=== PATIENT | female | born 1945 | race Caucasian/White ===

== ENCOUNTER 2016-09-05 19:38 | Emergency (ER) | payer OTHER ==
--- NOTE | ~2016-09-05 | CR63 ---
[facility] A Service of [facility] RADIOLOGY TEXT RESULTS PATIENT: MIYA GIBSON V LOCATION: SED : 49 UNIT #: [id number] AGE: [address]: Lanre Valles MD SEX: F ORDER DR: [id number] [place] [id number] E MR#: [id number] Acc #: [id number] NAME: MIYA GIBSON V. : 1945 SEX: F STUDY DATE/TIME: 09/05/2016 20:17 UNIT: SED ROOM: STUDY DESCRIPTION: CR Chest 2 View Attending Physician: Lanre Valles M.D. Ordering Physician: Lanre Valles M.D. Primary Care Physician: Saeid Gilliam M.D. MEDICAL IMAGING REPORT This report is preliminary unless electronic signature is present. EXAM Two-view chest; 09/05/2016. HISTORY 71-year-old female with hemoptysis and dizziness beginning today. Cough. COMPARISON Chest, 04/12/2011. FINDINGS Two views of the chest demonstrates focal opacity in the left mid lung field. Mass versus infiltrate should be considered. Right lung clear. No pleural effusion or pneumothorax. Heart size and mediastinum within normal limits. Pulmonary vasculature unremarkable. IMPRESSION Focal opacity in the left midlung field. This may represent a mass versus infiltrate and can be further characterized with nonemergent chest CT when the patient is clinically able. Dictated by... Kevin Dotson M.D. THIS IS AN ELECTRONICALLY VERIFIED REPORT Kevin Dotson M.D. at 09/06/2016 6:14 PM MIK/horacio TD: 09/05/2016 23:24 JOB #: [id number] MEDICAL IMAGING REPORT [facility] A Service [facility] RADIOLOGY TEXT RESULTS PATIENT: MIYA GIBSON V LOCATION: SED : 47 UNIT #: [id number] AGE: [address]: Lanre Valles MD SEX: F ORDER DR: Page 1 of 1
[~2016-09-05 19:38] MED LIST: ASPIRIN; ASPIRIN81 M1 PO; CALCIUM 500 + D1 TAB; DARVOCET-N 1001 TAB; IMDUR; IMDUR-ER60 MG PO; KLONOPIN; KLONOPIN1 MG PO; LEVAQUIN PO; LEVOTHYROXINE50 MCG PO; LORTAB 10-5001 EACH PO; MIRAPEX PO; MIRAPEX1 MG PO; MOBIC PO; NEXIUM; NEXIUM PO; NORCO 5/325 TAB1 TAB PO; PLAVIX; PLAVIX PO; PREDNISONE PO; PREDNISONE50 MG PO; REQUIP1 MG; SKELAXIN PO; TOPAMAX25 MG PO; ZOCOR; ZOLOFT; ZOLOFT100 MG PO
[2016-09-05] MEDS ORDERED: BACLOFEN10 MG (19:50)
[2016-09-05] MEDS ORDERED: ALBUTEROL17 GM (19:50)
[2016-09-05] MEDS ORDERED: CLOPIDOGREL75 MG (19:51)
[2016-09-05] MEDS ORDERED: KLONOPIN0.5 M3 (19:51)
[2016-09-05] MEDS ORDERED: TEMOVATE 0.05%15 GM (19:51)
[2016-09-05] MEDS ORDERED: SYMBICORT80 (19:51)
[2016-09-05] MEDS ORDERED: LORTAB 5-325 M1 EACH (19:52)
[2016-09-05] MEDS ORDERED: KCL (19:52)
[2016-09-05] MEDS ORDERED: VOLTAREN100 GM (19:52)
[2016-09-05] MEDS ORDERED: IMDUR-ER60 M2 (19:52)
[2016-09-05] MEDS ORDERED: SYNTHROID0.05 MG (19:53)
[2016-09-05] MEDS ORDERED: PROTONIX (19:53)
[2016-09-05] MEDS ORDERED: DESYREL100 MG (19:54)
[2016-09-05] MEDS ORDERED: MIRAPEX ER1.5 MG (19:54)
[2016-09-05] MEDS ORDERED: ZOLOFT100 MG (19:54)
[2016-09-05] MEDS ORDERED: TOPAMAX25 MG (19:54)
[2016-09-05] MEDS ORDERED: DITROPAN5 MG (19:55)
== END 2016-09-05 21:11 | disposition home or self-care (01) ==
LOC: SED 19:38
DX: J18.9 Pneumonia, unspecified organism (principal); F17.210 Nicotine dependence, cigarettes, uncomplicated
CPT/HCPCS: 71020; 99284

== ENCOUNTER 2016-10-04 08:08 | Emergency (ER) | payer OTHER ==
--- NOTE | ~2016-10-04 | CR181 ---
[facility] A Service of [facility] RADIOLOGY TEXT RESULTS PATIENT: MIYA GIBSON V LOCATION: SED : 47 UNIT #: [id number] AGE: [address]: Belia Bond MD SEX: F ORDER DR: [id number] [place] [id number] E MR#: [id number] Acc #: [id number] NAME: MIYA GIBSON V. : 1945 SEX: F STUDY DATE/TIME: 10/04/2016 8:46 UNIT: SED ROOM: STUDY DESCRIPTION: CR Lumbar Spine 2 or 3 Views Attending Physician: Belia Bond M.D. Ordering Physician: Belia Bond M.D. Primary Care Physician: Saeid Gilliam M.D. MEDICAL IMAGING REPORT This report is preliminary unless electronic signature is present. EXAM Lumbar spine 2 or 3 views HISTORY Low back pain for a month but worse in the last 2 days. No known injury. COMMENT AP, lateral and lumbosacral views lumbar spine reviewed. No previous. There is mild levoconvex lumbar scoliosis. Sagittal alignment essentially normal. There is mild loss of intervertebral disc height likely L5-S1 and multiple-level lower lumbar facet arthritis is probably most apparent at L4-5, L5-S1. There is no bone destruction or acute fracture suspected. There are prominent atherosclerotic vascular calcifications. IMPRESSION 1. Plain film evidence of lumbar degenerative disease. If more formation is needed and the patient is a candidate, she is best assessed further with an MRI. 2. Vascular calcifications. 3. Mild levoconvex lumbar scoliosis. Dictated by... Brandy Romo M.D. THIS IS AN ELECTRONICALLY VERIFIED REPORT Brandy Romo M.D. at 10/05/2016 7:54 AM BALTA/francisco TD: 10/04/2016 17:26 JOB #: [id number] [facility] A Service of [facility] RADIOLOGY TEXT RESULTS PATIENT: MIYA GIBSON V LOCATION: [facility] #: [id number] : [birth year] UNIT #: [id number] AGE: [address]: Belia Bond MD SEX: F ORDER DR: MEDICAL IMAGING REPORT Page 1 of 1
[~2016-10-04 08:08] MED LIST changes: +ALBUTEROL17 GM; +BACLOFEN10 MG; +CLOPIDOGREL75 MG; +DESYREL100 MG; +DITROPAN5 MG; +IMDUR-ER60 M2; +KCL; +KLONOPIN0.5 M3; +LORTAB 5-325 M1 EACH; +MIRAPEX ER1.5 MG; +PROTONIX; +SYMBICORT80; +SYNTHROID0.05 MG; +TEMOVATE 0.05%15 GM; +TOPAMAX25 MG; +VOLTAREN100 GM; +ZOLOFT100 MG
== END 2016-10-04 09:48 | disposition home or self-care (01) ==
LOC: SED 08:08
DX: M51.36 Other intervertebral disc degeneration, lumbar region (principal); G25.81 Restless legs syndrome; Z90.710 Acquired absence of both cervix and uterus; Z98.890 Other specified postprocedural states; Z88.2 Allergy status to sulfonamides; Z88.5 Allergy status to narcotic agent; Z79.899 Other long term (current) drug therapy; Z88.8 Allergy status to other drugs, medicaments and biological substances
CPT/HCPCS: 72100; 99283